=== PATIENT | male | born 1985 | race Caucasian/White ===

== ENCOUNTER 2024-07-19 08:34 | Emergency (ER) | payer OTHER ==
[2024-07-19] MEDS ORDERED: Aspirin Chewable 81 MG TAB ONE (09:05)
[2024-07-19 09:25] LABS: #Basophils 0.05 10x3/uL (0.0-0.2); #Eosinophils 0.07 10x3/uL (0.0-0.5); #Monocytes 0.92 10x3/uL (0.0-1.1); #Neutrophils 8.82 10x3/uL (1.5-8.4); %Basophils 0.4 % (0.0-2.0); %Eosinophils 0.6 % (0.0-6.0); %Lymphocytes 12.1 % (18.0-47.0); %Monocytes 8.1 % (0.0-10.0); %Neutrophils 77.8 % (40.0-75.0); Hematocrit 50.1 % (38.8-50.0); Hemoglobin 18.3 g/dL (13.5-17.5); Mean Corpuscular HGB CONC 36.5 g/dL (32.0-36.0); Mean Corpuscular Hemoglobin 30.7 pg (27.0-33.0); Mean Corpuscular Volume 83.9 fL (81.2-95.1); Platelet Count 165 10x3/uL (150-450); RBC Distribution Width 11.6 % (11.5-14.5); Red Blood Cell (RBC) Count 5.97 10x6/uL (4.32-5.72); White Blood Cell (WBC) Count 11.3 10x3/uL (3.5-10.5)
[2024-07-19 09:41] LABS: ALT (SGPT) 67 U/L (8-55); AST (SGOT) 43 U/L (5-34); Albumin 4.3 g/dL (3.5-5.0); Alkaline Phosphatase 86 U/L (40-110); Anion Gap 18 mmol/L (10-20); BUN (Urea Nitrogen) 7 mg/dL (8.9-20.6); Bilirubin, Total 1.2 mg/dL (0.2-1.2); Calc. Creatinine Clearance 0 mL/min (70-130); Calcium 9.2 mg/dL (7.8-10.44); Carbon Dioxide 19 mmol/L (22-29); Chloride 100 mmol/L (98-107); Estimated GFR 114; Globulin 3.4 g/dL (2.4-3.5); Glucose 344 mg/dL (70-105); Lipase 13 U/L (8-78); Potassium 4.2 mmol/L (3.5-5.1); Protein, Total 7.7 g/dL (6.0-8.3); Sodium 133 mmol/L (136-145)
[2024-07-19 09:43] LABS: Troponin I Less than 0.010 ng/mL (< 0.028)
[2024-07-19] MEDS ORDERED: Nitroglycerin 0.4 MG TAB 1 EACH ONE (10:20)
[2024-07-19] MEDS ORDERED: Ketorolac Tromethamine 30 MG (1 mL) VIAL ONE (10:47)
== END 2024-07-19 11:04 | disposition home or self-care (01) ==
LOC: CSHERS 08:34
DX: R07.2 Precordial pain (principal); R59.9 Enlarged lymph nodes, unspecified; R73.9 Hyperglycemia, unspecified
CPT/HCPCS: 71045; 71275; 80053; 83690; 84484; 85025; 93005; 96374; J1885